=== PATIENT | male | born 1990 | race Two or more races ===

== ENCOUNTER 2024-10-11 11:55 | Emergency (ER) | payer SELFPAY ==
[~2024-10-11] VITALS: Ht 160 cm; Wt 73.6 kg
[2024-10-11 13:57] VITALS: BP 122/75; PULSE 64; RESP 14; TEMP 98.1; O2SAT 98
--- NOTE | 2024-10-11 14:06 | ED.PDOC ---
HPI Comments A 34 YEAR OLD MALE PRESENTS TO THE ED WITH COMPLAINT OF LACERATION OF UPPER LIP. PATIENT STATES HE WAS WORKING ON HIS CAR EARLIER TODAY AND HE ACCIDENTALLY SLIPPED AND FELL FORWARD AND HIT HIS UPPER LIP ON A METAL BRAKE. PATIENT REPORTS HE SUSTAINED A LACERATION ON HIS UPPER LIP. BLEEDING IS CONTROLLED AT THIS TIME. PATIENT DENIES FEVER, CHILLS, SHORTNESS OF BREATH, CHEST PAIN, ABDOMINAL PAIN, NAUSEA, VOMITING, HEADACHE, OR OTHER COMPLAINTS. NO OTHER SYMPTOMS OR MODIFYING FACTORS AT THIS TIME. PATIENT IS ALERT, ORIENTED X 4, AND HAS STEADY GAIT. Chief Complaint: Facial Injury Time Seen by MD: 12:11 Reviewed Notes: Nurses Notes, Medications, Allergies Allergies: Coded Allergies: NO KNOWN ALLERGIES (Unverified , 10/11/24) Information Source: Patient Mode of Arrival: Ambulatory Severity: Mild, Moderate Severity of Laceration: Controlled Bleeding Complexity: Simple Timing: Hours Prehospital treatment: None Laceration Location: Lip (UPPER LIP) Mechanism: Metal, Fall Last Tetanus: > 5 Years Laceration Length (cm): 3 Skin Type: Linear Depth of Injury: Skin, SQ Tendon Injury: 0% Capillary Refill: < 3 seconds Tender: Mild, Moderate Discharge: None Erythema: None Associated Signs and Symptoms: None Past Medical History PAST MEDICAL HISTORY: Denies Surgical History: Denies all surgeries Family History Family History: Reviewed,noncontributory to illness Social History Smoker: Non-Smoker Alcohol: Denies ETOH Use Drugs: Denies Drug Use Lives In: Home Constitutional: denies: chills, diaphoresis, fatigue, fever, malaise, sweats, weakness, others EENTM: reports: others (RIGHT UPPER LIP LACERATION. ); denies: blurred vision, double vision, ear bleeding, ear discharge, ear drainage, ear pain, ear ringing, eye pain, eye redness, hearing loss, mouth pain, mouth swelling, nasal discharge, nose bleeding, nose congestion, nose pain, photophobia, tearing, throat pain, throat swelling, voice changes Respiratory: denies: cough, hemoptysis, orthopnea, SOB at rest, shortness of breath, SOB with excertion, stridor, wheezing, others Cardiovascular: denies: chest pain, dizzy spells, diaphoresis, Dyspnea on exertion, edema, irregular heart beat, left arm pain, lightheadedness, palpitations, PND, syncope, others Gastrointestinal: denies: abdomen distended, abdominal pain, blood streaked bowels, constipated, diarrhea, dysphagia, difficulty swallowing, hematemesis, melena, nausea, poor appetite, poor fluid intake, rectal bleeding, rectal pain, vomiting, others Genitourinary: denies: burning, dysuria, flank pain, frequency, hematuria, incontinence, penile discharge, penile sore, pain, testicle pain, testicle swelling, urgency, others Neurological: denies: dizziness, fainting, headache, left sided numbness, left sided weakness, numbness, paresthesia, pre-existing deficit, right sided numbness, right sided weakness, seizure, speech problems, tingling, tremors, weakness, others Musculoskeletal: denies: back pain, gout, joint pain, joint swelling, muscle pain, muscle stiffness, neck pain, others Integumetry: reports: laceration (LACERATION OF UPPER LIP); denies: bruises, change in color, change in hair/nails, dryness, lesions, lumps, rash, wounds, others Allergic/Immunocompromised: denies: Difficulty Healing, Frequent Infections, Hives, Itching, others Hematologic/Lymphatic: denies: anemia, blood clots, easy bleeding, easy bruising, swollen glands, others Endocrine: denies: excessive hunger, excessive sweating, excessive thirst, excessive urination, flushing, intolerance to cold, intolerance to heat, unexplained weight gain, unexplained weight loss, others Psychiatric: denies: anxiety, bipolar disorder, depression, hopeless, panic disorder, schizophrenia, sleepless, suicidal, others All Other Systems: Reviewed and Negative Physical Exam General Appearance: No Apparent Distress, Normal HEENT: Normal ENT Inspection, PERRL/EOMI, Pharynx Normal, TMs Normal Neck: Full Range of Motion, Non-Tender, Normal, Normal Inspection Respiratory: Chest Non-Tender, Lungs Clear, No Accessory Muscle Use, No Respiratory Distress, Normal Breath Sounds Cardiovascular: No Edema, No JVD, No Murmur, No Gallop, Normal Peripheral Pulses, Regular Rate/Rhythm Breast Exam: Deferred Gastrointestinal: No Organomegaly, Non Tender, No Pulsatile Mass, Normal Bowel Sounds, Soft Genitalia: Deferred Pelvic: Deferred Rectal: Deferred Extremities: No calf tenderness, Normal capillary refill, Normal inspection, Normal range of motion, Non-tender, No pedal edema Musculoskeletal : Apperance: Normal Neurologic: Alert, senior analytical chemist II-XII nml as Tested, No Motor Deficits, Normal Affect, Normal Mood, No Sensory Deficits Cerebellar Function: Normal Reflexes: Normal Skin: Dry, Lacerations (2CM IRREGULAR LACERATION ON RIGHT UPPER LIP, NO BLEEDING AND FB, NO BONY TENDERNESS AND SWELLING. ), Normal Color, Warm Peripheral Pulses: 2+ carotid (R), 2+ carotid (L) Lymphatic: No Adenopathy Was a procedure done? Was a procedure done?: Yes Sedation Sedation?: No Laceration Repair : Location UPPER LIP Length 3CM Anesthetic: Lidocaine, Without epi Laceration Repair Prep: Saline, by Irrigation Laceration Repair Wound Comple: epidermis/dermis repair Laceration Repair: Number of sutures (5), Skin, SQ, Size (4-0 ETHILON), Nylon, Simple, Gauze Informed consent obtained: No Risks, benefits, and alternati: Yes Images 1 - Differential diagnosis Generic Laceration: Abrasion/Contusion, Laceration, Avulsion Differential Diagnosis: N/A X-Ray, Labs, Meds, VS Vital Signs Date Time Temp Pulse Resp B/P (MAP) Pulse Ox O2 Delivery O2 Flow Rate FiO2 10/11/24 13:57 64 14 98 Room Air 0 10/11/24 13:57 98.1 63 14 122/75 (91) 98 98.1 10/11/24 11:57 97.9 56 20 142/94 96 97.9 X-Ray, Labs, Meds, VS Comment EXTERNAL MEDICAL RECORDS REVIEWED: [NONE] INDEPENDENT HISTORIANS: [NONE] SOCIAL DETERMINANTS OF HEALTH: [NONE] LABS ORDERED: NONE REVIEWED AND INTERPRETED RESULTS: NONE IMAGING ORDERED: NONE TREATMENTS ORDERED: TETANUS 0.5ML IM PROCEDURES PERFORMED: LACERATION REPAIR, SEE PROCEDURE SECTION. CRITICAL CARE TIME: NONE I HAVE DISCUSSED THE PATIENT WITH THE ATTENDING PHYSICIAN, DR. STERN HE AGREES WITH THE PATIENT'S PLAN OF CARE AND DISPOSITION. BASED ON HISTORY OF PRESENT ILLNESS, AND PHYSICAL EXAM, PATIENT WILL BE DISCHARGED HOME. SHARED DECISION MAKING: DISCUSSED WITH PATIENT THAT THEIR WORKUP WAS NORMAL. PATIENT INSTRUCTED TO FOLLOW UP WITH PRIMARY CARE PROVIDER IN 1-2 DAYS FOR RE- EVALUATION OF SYMPTOMS. PATIENT VERBALIZES UNDERSTANDING TO RETURN TO ED FOR NEW OR WORSENING SYMPTOMS OR IF FOLLOW UP WITH PCP CANNOT BE OBTAINED. PATIENT FEELS COMFORTABLE GOING HOME AT THIS TIME. ALL QUESTIONS ADDRESSED AT TIME OF DISCHARGE. Time of 1ST Reevaluation: 14:14 Reevaluation 1ST: Improved Patient Education/Counseling: Diagnosis, Treatment, Need For Follow Up Family Education/Counseling: Diagnosis, Treatment, Need For Follow Up Medical Screening: No EMC Exist At This Time Departure 1 Departure Time of Disposition: 14:14 Impression: Primary Impression: Laceration of lip Qualified Codes: S01.511A - Laceration without foreign body of lip, initial encounter Additional Impression: Status post fall Disposition: 01 HOME / SELF CARE / HOMELESS Condition: Stable Additional Instructions: FOLLOW-UP WITH PCP IN 1 TO 2 DAYS. RETURN TO ED FOR ANY NEW OR WORSENING SYMPTOMS. Discharged With: Self Critical Care Note Critical Care Time?: No Stability Stability form required: No I personally scribed for RITO MILLER ([email or web address]) on 10/11/24 at 14:06. Electronically submitted by Everett Albert ([email or web address]). I personally scribed for RITO MILLER ([email or web address]) on 10/11/24 at 14:08. Electronically submitted by Everett Albert (EMY). RITO MILLER Oct 11, 2024 14:06
== END 2024-10-11 14:20 | disposition home or self-care (01) ==
LOC: ER 11:55
DX: S01.511A Laceration without foreign body of lip, initial encounter (principal); W01.198A Fall on same level from slipping, tripping and stumbling with subsequent striking against other object, initial encounter; Y93.89 Activity, other specified; Y92.89 Other specified places as the place of occurrence of the external cause; Y99.8 Other external cause status
CPT/HCPCS: 12013